=== PATIENT | female | born 1965 | race Caucasian/White ===

== ENCOUNTER 2016-09-28 09:22 | Emergency (ER) | payer MEDICAID ==
[~2016-09-28] VITALS: Ht 162.6 cm; Wt 61.2 kg
[2016-09-28] MEDS ORDERED: ASPI1TAB PO (09:26)
[2016-09-28] MEDS ORDERED: PROMETHAZINE HCL 25 MG/1 ML VIAL IM ONE (09:45)
[2016-09-28] MEDS ORDERED: HYDROMORPHONE 1 MG/1 ML DISP.SYRIN IM ONE (09:45)
[2016-09-28] MEDS ORDERED: HYDROMORPHONE 2 MG/1 ML DISP.SYRIN ONE (10:01)
[2016-09-28] MEDS ORDERED: PROMETHAZINE HCL 25 MG/1 ML VIAL ONE (10:02)
--- NOTE | 2016-09-28 10:09 | NUR ---
PT IS IN ROOM #2A. DR REYES EVALUATED THE PT.
--- NOTE | 2016-09-28 10:40 | NUR ---
PT WAS D/C TO HOME. D/C INSTRUCTIONS GIVEN TO THE PT.
[2016-09-28 10:42] VITALS: BP 129/72
== END 2016-09-28 10:44 | disposition home or self-care (01) ==
LOC: ER 09:22
DX: R51 Headache (principal); J02.9 Acute pharyngitis, unspecified; Z79.82 Long term (current) use of aspirin
CPT/HCPCS: 70450; A4663; J1170; J2550

== ENCOUNTER 2016-12-06 21:34 | Emergency (ER) | payer MEDICAID ==
[~2016-12-06] VITALS: Ht 162.6 cm; Wt 61.2 kg
[~2016-12-06 21:34] MED LIST: ASPI1TAB PO
--- NOTE | 2016-12-06 22:43 | NUR ---
Pt to room. Pt c/o constant cough and sorethroat. Resp even and unlabored. Lungs CTA. Pt seen by MD. Pt stable for discharge per MD. Pt given ACi. Pt verbalized understanding of dc instructions. Pt ambulated out of er with steady gait.
[2016-12-06 22:45] VITALS: BP 93/70
== END 2016-12-06 22:45 | disposition home or self-care (01) ==
LOC: ER 21:35
DX: J40 Bronchitis, not specified as acute or chronic (principal); J02.9 Acute pharyngitis, unspecified; Z79.82 Long term (current) use of aspirin
CPT/HCPCS: A4663

== ENCOUNTER 2016-12-24 18:43 | Emergency (ER) | payer MEDICAID ==
[~2016-12-24] VITALS: Ht 162.6 cm; Wt 61.2 kg
--- NOTE | 2016-12-24 19:04 | NUR ---
Dr. Dawson at bedside for eval.
[2016-12-24 19:50] LABS: BASOPHILS # (AUTO) 0.1 K/uL (0.0-8.0); BASOPHILS % (AUTO) 0.8 % (0.0-2.0); EOSINOPHILS # (AUTO) 0.9 K/uL (0.0-0.7); EOSINOPHILS % (AUTO) 12.3 % (0.0-7.0); HEMATOCRIT 39.2 % (37-47); HEMOGLOBIN 13.2 G/DL (12.0-16.0); LYMPHOCYTES # (AUTO) 2.8 K/UL (0.8-4.8); LYMPHOCYTES % (AUTO) 39.1 % (20.5-51.5); MEAN CORPUSCULAR HEMOGLOBIN 30.9 UUG (27.0-31.0); MEAN CORPUSCULAR HGB CONC 34 g/dL (32.0-37.0); MEAN CORPUSCULAR VOLUME 91.7 FL (81.0-99.0); MONOCYTES # (AUTO) 0.5 K/UL (0.1-1.30); MONOCYTES % (AUTO) 6.3 % (0.0-11.0); NEUTROPHILS % (AUTO) 41.5 % (38.5-71.5); PLATELET COUNT (AUTO) 306 K/UL (150-450); RED BLOOD CELL COUNT(AUTO) 4.27 MIL/UL (4.2-5.4); WHITE BLOOD COUNT (AUTO) 7.3 K/UL (4.0-11.2)
[2016-12-24 19:52] LABS: POTASSIUM 3.8 mmol/L (3.5-5.1)
[2016-12-24 20:04] LABS: BILIRUBIN,DIRECT 0.1 mg/dL (0.0-0.2); BILIRUBIN,TOTAL 0.3 mg/dL (0.2-1.0)
[2016-12-24] MEDS: methylPREDNISolone ACETATE 40 MG VIAL IM ONE (20:38)
[2016-12-24 20:39] VITALS: BP 123/65
[2016-12-24] MEDS ORDERED: methylPREDNISolone ACETATE 40 MG VIAL ONE (20:46)
== END 2016-12-24 20:39 | disposition home or self-care (01) ==
LOC: ER 18:43
DX: J45.909 Unspecified asthma, uncomplicated (principal); Z79.82 Long term (current) use of aspirin
CPT/HCPCS: 36415; 70030-TC; 71010; 83605; 85025; 87040; A4663; J1030

== ENCOUNTER 2017-04-17 15:04 | Emergency (ER) | payer MEDICAID ==
[~2017-04-17] VITALS: Ht 160 cm; Wt 61.2 kg
[2017-04-17] MEDS ORDERED: ASPI-58 PO (15:33)
--- NOTE | 2017-04-17 15:59 | NUR ---
Patient discharged to home in stable conditon. Written and verbal after care instructions given. Patient verbalizes understanding of instructions.pt walks in steady gait.
== END 2017-04-17 16:01 | disposition home or self-care (01) ==
LOC: ER 15:05
DX: M54.12 Radiculopathy, cervical region (principal); F17.200 Nicotine dependence, unspecified, uncomplicated; Z79.82 Long term (current) use of aspirin
CPT/HCPCS: 99282; A4663

== ENCOUNTER 2017-07-15 18:16 | Emergency (ER) | payer MEDICAID ==
[~2017-07-15] VITALS: Ht 162.6 cm; Wt 62.1 kg
[~2017-07-15 18:16] MED LIST changes: +ASPI-1165 PO; +ASPI-58 PO; -ASPI1TAB PO
--- NOTE | 2017-07-15 19:04 | NUR ---
Report taken from day shift RN. Assuming PT care at this time
--- NOTE | 2017-07-15 19:30 | NUR ---
Patient left without being seen by ER physician. ER MD notified. patient stable at time of leaving. No IV access present. All belongings with patient.
== END 2017-07-15 19:36 | disposition left against medical advice (07) ==
LOC: ER 18:17
DX: Z53.21 Procedure and treatment not carried out due to patient leaving prior to being seen by health care provider (principal)
CPT/HCPCS: A4663

== ENCOUNTER 2017-07-25 17:36 | Emergency (ER) | payer MEDICAID ==
[~2017-07-25] VITALS: Ht 165.1 cm; Wt 62.1 kg
[2017-07-25] MEDS ORDERED: IBUP-1096 (18:44)
--- NOTE | 2017-07-25 19:14 | NUR ---
ERMD at bedside for MSE
[2017-07-25] MEDS ORDERED: predniSONE 50 MG TABLET PO ONE (19:30)
[2017-07-25] MEDS ORDERED: CEPHALEXIN MONOHYDRATE 500 MG CAPSULE PO ONE (19:30)
--- NOTE | 2017-07-25 19:31 | NUR ---
Patient discharged to home in stable conditon. Written and verbal after care instructions given. Patient verbalizes understanding of instructions.
[2017-07-25] MEDS ORDERED: CEPHALEXIN MONOHYDRATE 500 MG CAPSULE ONE (19:43)
[2017-07-25] MEDS ORDERED: predniSONE 50 MG TABLET ONE (19:43)
== END 2017-07-25 19:32 | disposition home or self-care (01) ==
LOC: ER 17:36
DX: J45.909 Unspecified asthma, uncomplicated (principal); Z79.82 Long term (current) use of aspirin
CPT/HCPCS: A4663; J7512

== ENCOUNTER 2018-03-01 20:26 | Emergency (ER) | payer MEDICAID ==
[~2018-03-01] VITALS: Ht 165.1 cm; Wt 63.5 kg
[~2018-03-01 20:26] MED LIST changes: +IBUP-1096
--- NOTE | 2018-03-01 21:17 | NUR ---
Dr. Jaime at bedside for MSE.
--- NOTE | 2018-03-01 21:30 | NUR ---
Patient discharged to home in stable conditon. Written and verbal after care instructions given. Patient verbalizes understanding of instructions. Pt ambulated out of ER with steady gait, no acute signs of distress, VSS, all belongings taken.
[2018-03-01 21:38] VITALS: BP 139/79
== END 2018-03-01 21:39 | disposition home or self-care (01) ==
LOC: ER 20:31
DX: J20.8 Acute bronchitis due to other specified organisms (principal); B96.89 Other specified bacterial agents as the cause of diseases classified elsewhere; Z87.891 Personal history of nicotine dependence
CPT/HCPCS: 99283; A4663

== ENCOUNTER 2020-07-27 19:39 | Emergency (ER) | payer MEDICAID ==
[~2020-07-27] VITALS: Ht 162.6 cm; Wt 70.8 kg
--- NOTE | 2020-07-27 20:15 | NUR ---
Dr. Nye at bedside for MSE.
--- NOTE | 2020-07-27 20:24 | NUR ---
Xray at bedside.
[2020-07-27] MEDS ORDERED: diphenhydrAMINE 50 MG/1 ML VIAL IM ONE (21:15)
[2020-07-27] MEDS ORDERED: KETOROLAC TROMETHAMINE 60 MG INJ IM ONE ×2 (21:15→21:21)
[2020-07-27] MEDS ORDERED: METOCLOPRAMIDE HCL 10 MG/2 ML VIAL IM ONE (21:15)
[2020-07-27] MEDS ORDERED: diphenhydrAMINE 50 MG/1 ML VIAL ONE (21:20)
[2020-07-27] MEDS ORDERED: METOCLOPRAMIDE HCL 10 MG/2 ML VIAL ONE (21:21)
--- NOTE | 2020-07-27 21:42 | NUR ---
Patient discharged to home in stable condition. Written and verbal after care instructions given. Patient verbalizes understanding of instructions. Stressed follow up or return to ER for worsening s/s. Patient out of ER with steady gait, no acute signs of distress, VSS, all belongings taken, provided with a copy of lab results.
[2020-07-27 21:43] VITALS: BP 140/82
== END 2020-07-27 21:43 | disposition home or self-care (01) ==
LOC: ER 19:59
DX: J18.9 Pneumonia, unspecified organism (principal); R00.1 Bradycardia, unspecified; F17.200 Nicotine dependence, unspecified, uncomplicated; Z79.82 Long term (current) use of aspirin
CPT/HCPCS: 71045; 87426; 93005; 96372 ×2; 99285; J1200; J1885; J2765; A4663

== ENCOUNTER 2020-09-14 19:00 | Emergency (ER) | payer MEDICAID ==
[~2020-09-14] VITALS: Ht 162.6 cm; Wt 71.2 kg
--- NOTE | 2020-09-14 19:18 | NUR ---
Patient arrived at the ER with c/o sorethroat x5days and cough x3 weeks.
--- NOTE | 2020-09-14 19:19 | NUR ---
Dr. Jaime on bedside for MSE.
[2020-09-14] MEDS ORDERED: BENZONATATE 100 MG CAPSULE PO ONE (19:30)
[2020-09-14] MEDS ORDERED: BENZONATATE 100 MG CAPSULE ONE (19:30)
[2020-09-14] MEDS ORDERED: BENZ-13 PO (20:24)
--- NOTE | 2020-09-14 20:30 | NUR ---
Patient discharged to home in stable condition. Written and verbal after care instructions given. Patient verbalizes understanding of instructions. Stressed follow up or return to ER for worsening s/s. Patient ambulated fr the ER with steady gait. All belongings with patient.
[2020-09-14 20:31] VITALS: BP 136/90
== END 2020-09-14 20:31 | disposition home or self-care (01) ==
LOC: ER 19:01
DX: R05 Cough (principal); Z87.01 Personal history of pneumonia (recurrent); Z87.891 Personal history of nicotine dependence
CPT/HCPCS: 71045; A4663

== ENCOUNTER 2021-01-03 14:05 | Emergency (ER) | payer MEDICAID ==
[~2021-01-03] VITALS: Ht 162.6 cm; Wt 71.2 kg
[~2021-01-03 14:05] MED LIST changes: +BENZ-13 PO
[2021-01-03 14:54] LABS: HEMATOCRIT 40.5 % (31.2-41.9); MEAN CORPUSCULAR HEMOGLOBIN 30.9 uug (24.7-32.8); MEAN CORPUSCULAR VOLUME 91.6 fL (75.5-95.3); PLATELET COUNT (AUTO) 350 K/uL (179-408)
[2021-01-03 14:59] LABS: CREATININE 1.1 mg/dL (0.6-1.3); POTASSIUM 4.2 mmol/L (3.5-5.1)
[2021-01-03 15:00] LABS: MAGNESIUM 2.1 mg/dL (1.8-2.4)
--- NOTE | 2021-01-03 15:12 | NUR ---
Patient discharged to home in stable condition. Written and verbal after care instructions given. Patient verbalizes understanding of instructions. Stressed follow up or return to ER for worsening s/s.
== END 2021-01-03 15:14 | disposition home or self-care (01) ==
LOC: ER 14:06
DX: R25.3 Fasciculation (principal); M25.512 Pain in left shoulder; R00.1 Bradycardia, unspecified
CPT/HCPCS: 36415; 70030-TC; 83735; 85025; 93005; A4663

== ENCOUNTER 2021-04-03 15:21 | Emergency (ER) | payer MEDICAID ==
[~2021-04-03] VITALS: Ht 154.9 cm; Wt 72.6 kg
--- NOTE | 2021-04-03 15:55 | NUR ---
ERMD at bedside for hx and physical EKG taken, Xray at bedside Lab at bedside for blood draw NAD VSS able to follow commands, changed into hospital gown [id number], bed at lowest position, ambulatory with stable gait
[2021-04-03 16:05] LABS: HEMATOCRIT 40.6 % (31.2-41.9); MEAN CORPUSCULAR HEMOGLOBIN 31.6 uug (24.7-32.8); MEAN CORPUSCULAR VOLUME 93.1 fL (75.5-95.3); PLATELET COUNT (AUTO) 283 K/uL (179-408)
[2021-04-03 16:08] LABS: POTASSIUM 4.3 mmol/L (3.5-5.1)
[2021-04-03 16:35] VITALS: BP 135/70
== END 2021-04-03 16:36 | disposition home or self-care (01) ==
LOC: ER 15:22
DX: R07.89 Other chest pain (principal); R05.9 Cough, unspecified; R00.1 Bradycardia, unspecified; Z87.01 Personal history of pneumonia (recurrent); Z79.82 Long term (current) use of aspirin
CPT/HCPCS: 36415; 70030-TC; 71045; 85025; 93005; A4663

== ENCOUNTER 2021-07-17 19:51 | Emergency (ER) | payer MEDICAID ==
[~2021-07-17] VITALS: Ht 162.6 cm; Wt 72.1 kg
[2021-07-17] MEDS ORDERED: ASPIRIN 81 MG TAB.CHEW PO ONE (20:15)
--- NOTE | 2021-07-17 20:17 | NUR ---
pt in room 2a c/o c/p and sob. pt a/o at this time.
--- NOTE | 2021-07-17 20:28 | NUR ---
Dr. Raines at bedside for MSE.
[2021-07-17] MEDS ORDERED: ASPIRIN 81 MG TAB.CHEW ONE (20:29)
--- NOTE | 2021-07-17 20:47 | NUR ---
labs were drawn.
[2021-07-17 20:54] LABS: HEMATOCRIT 39.7 % (31.2-41.9); MEAN CORPUSCULAR HEMOGLOBIN 31.3 uug (24.7-32.8); MEAN CORPUSCULAR VOLUME 90.8 fL (75.5-95.3); PLATELET COUNT (AUTO) 312 K/uL (179-408)
[2021-07-17 21:03] LABS: POTASSIUM 3.9 mmol/L (3.5-5.1)
--- NOTE | 2021-07-17 21:04 | NUR ---
pt taken to cat scan.
--- NOTE | 2021-07-17 21:12 | NUR ---
pt returned from cat scan.
[2021-07-17] MEDS ORDERED: METOCLOPRAMIDE HCL 10 MG/2 ML VIAL IV ONE (21:15)
[2021-07-17] MEDS ORDERED: diphenhydrAMINE 50 MG/1 ML VIAL IV ONE (21:15)
[2021-07-17] MEDS ORDERED: IV NS 1000 ML 1,000 ML IV ONE (21:15)
[2021-07-17] MEDS ORDERED: KETOROLAC TROMETHAMINE 30 MG INJ IVP ONE (21:15)
[2021-07-17 21:18] LABS: BILIRUBIN,DIRECT 0.1 mg/dL (0.0-0.2); BILIRUBIN,TOTAL 0.2 mg/dL (0.2-1.0); TOTAL PROTEIN, SERUM 7.2 g/dL (6.4-8.2)
[2021-07-17 21:22] LABS: MAGNESIUM 2.2 mg/dL (1.8-2.4); THYROID STIMULATING HORMONE 1.414 mIU/mL (0.358-3.740)
[2021-07-17] MEDS ORDERED: KETOROLAC TROMETHAMINE 30 MG INJ ONE (21:49)
[2021-07-17] MEDS ORDERED: diphenhydrAMINE 50 MG/1 ML VIAL ONE (21:49)
[2021-07-17] MEDS ORDERED: METOCLOPRAMIDE HCL 10 MG/2 ML VIAL ONE (21:49)
[2021-07-17] MEDS ORDERED: DIPH25CA83 PO (23:01)
[2021-07-17] MEDS ORDERED: NAPR-1009 PO (23:01)
[2021-07-17] MEDS ORDERED: METO-295 PO (23:01)
[2021-07-17] MEDS ORDERED: HYDR-3980 PO (23:02)
--- NOTE | 2021-07-17 23:21 | NUR ---
Patient discharged to home in stable condition. Written and verbal after care instructions given. Patient verbalizes understanding of instructions. Stressed follow up or return to ER for worsening s/s. pt ambulated with steady gait. denies pain.
[2021-07-17 23:22] VITALS: BP 145/86
== END 2021-07-17 23:23 | disposition home or self-care (01) ==
LOC: ER 19:52
DX: G43.909 Migraine, unspecified, not intractable, without status migrainosus (principal); M94.0 Chondrocostal junction syndrome [Tietze]; F17.290 Nicotine dependence, other tobacco product, uncomplicated; Z88.1 Allergy status to other antibiotic agents; Z79.82 Long term (current) use of aspirin; Z79.899 Other long term (current) drug therapy
CPT/HCPCS: 36415; 70450; 71045; 80048; 80076; 83036; 83735; 84443; 84484; 85025; 93005; 96361; 96374; 96375; 99285; J1200; J1885; J2765; 70030-TC; A4663; J7030

== ENCOUNTER 2023-04-26 18:04 | Emergency (ER) | payer MEDICAID ==
[~2023-04-26] VITALS: Ht 162.6 cm; Wt 72.6 kg
[~2023-04-26 18:04] MED LIST changes: +DIPH25CA83 PO; +HYDR-3980 PO; +METO-295 PO; +NAPR-1009 PO
[2023-04-26] MEDS ORDERED: diphenhydrAMINE 50 MG/1 ML VIAL IVP ONE (19:00)
[2023-04-26] MEDS ORDERED: PROCHLORPERAZINE EDISYLATE 10 MG/2 ML VIAL IV ONE (19:00)
[2023-04-26] MEDS ORDERED: ACETAMINOPHEN ES 500 MG TABLET PO ONE (19:00)
[2023-04-26] MEDS ORDERED: IV NORMAL SALINE 1000 ML BAG IV ONE (19:00)
[2023-04-26 19:14] LABS: BASOPHILS # (AUTO) 0.1 K/UL (0.0-0.2); BASOPHILS % (AUTO) 1.1 % (0.0-2.0); EOSINOPHILS # (AUTO) 0.5 K/uL (0.0-0.7); EOSINOPHILS % (AUTO) 5.7 % (0.0-7.0); HEMATOCRIT 40.1 % (31.2-41.9); HEMOGLOBIN 13.3 g/dL (10.9-14.3); LYMPHOCYTES # (AUTO) 1.6 K/uL (0.8-4.8); LYMPHOCYTES % (AUTO) 19.7 % (20.5-51.5); MEAN CORPUSCULAR HEMOGLOBIN 30.7 uug (24.7-32.8); MEAN CORPUSCULAR HGB CONC 33 g/dL (32.3-35.6); MEAN CORPUSCULAR VOLUME 92.4 fL (75.5-95.3); MONOCYTES # (AUTO) 0.4 K/uL (0.1-1.30); MONOCYTES % (AUTO) 4.5 % (0.0-11.0); NEUTROPHILS # (AUTO) 5.5 K/uL (1.8-8.9); PLATELET COUNT (AUTO) 305 K/uL (179-408); RED BLOOD CELL COUNT(AUTO) 4.34 MIL/uL (3.63-4.92); RED CELL DISTRIBUTION WIDTH 13.2 % (12.3-17.7); WHITE BLOOD COUNT (AUTO) 7.9 K/uL (3.8-11.8)
[2023-04-26 19:16] LABS: DIFFERENTIAL COMMENT 1
[2023-04-26] MEDS ORDERED: ACETAMINOPHEN ES 500 MG TABLET ONE (19:18)
[2023-04-26] MEDS ORDERED: PROCHLORPERAZINE EDISYLATE 10 MG/2 ML VIAL ONE (19:19)
[2023-04-26] MEDS ORDERED: diphenhydrAMINE 50 MG/1 ML VIAL ONE (19:19)
[2023-04-26 19:20] LABS: CALCIUM 9.8 mg/dL (8.5-10.1); CARBON DIOXIDE 27 mmol/L (21-32); CHLORIDE 105 mmol/L (98-107); CREATININE 1.1 mg/dL (0.6-1.3); GLUCOSE 145 mg/dL (74-106); POTASSIUM 4.1 mmol/L (3.5-5.1); SODIUM SERUM 143 mmol/L (136-145); UREA NITROGEN, BLOOD 16 mg/dL (7-18)
[2023-04-26 20:59] VITALS: BP 120/75; TEMP 98.6; O2SAT 100
== END 2023-04-26 20:59 | disposition home or self-care (01) ==
LOC: ER 18:05
DX: R51.9 Headache, unspecified (principal); R11.2 Nausea with vomiting, unspecified; R07.89 Other chest pain; R06.02 Shortness of breath; F17.210 Nicotine dependence, cigarettes, uncomplicated; Z88.1 Allergy status to other antibiotic agents; Z79.82 Long term (current) use of aspirin; Z79.899 Other long term (current) drug therapy; Z20.822 Contact with and (suspected) exposure to COVID-19
CPT/HCPCS: 99285; 96374; 71045; 96361; 96375; 87426; 80048; 85025; 84484 ×2; 36415; 93005; J1200; J0780; J7040; A4606; A4663; A9150

== ENCOUNTER 2023-06-17 18:11 | Emergency (ER) | payer MEDICAID ==
[~2023-06-17] VITALS: Ht 162.6 cm; Wt 72.6 kg
[2023-06-17 19:47] LABS: *BILIRUBIN,URIN NEGATIVE (NEGATIVE); *CLARITY,URINE CLEAR (CLEAR); *COLOR,URINE YELLOW (YELLOW); *KETONES,URINE TRACE (NEGATIVE); *PROTEIN,URINE NEGATIVE (NEGATIVE); *UROBILINOGEN,URINE 0.2 E.U./dl (NORMAL); LEUKOCYTE ESTERASE ,URINE NEGATIVE (NEGATIVE); NITRITE, URINE NEGATIVE (NEGATIVE); UGLUCOSE NEGATIVE (NEGATIVE)
[2023-06-17 19:59] LABS: *BLOOD, URINE TRACE (NEGATIVE)
[2023-06-17] MEDS ORDERED: KETOROLAC TROMETHAMINE 30 MG INJ IM ONE (20:00)
[2023-06-17] MEDS ORDERED: ONDANSETRON ODT 4 MG TAB.RAPDIS SL ONE (20:00)
[2023-06-17 20:08] LABS: BACTERIA,URINE FEW /HPF (NONE SEEN); RBC,URINE 0-3 /HPF (0-3); SQUAMOUS EPITHELIAL CELL,UR FEW /HPF (NONE SEEN); WBC,URINE 0-3 /HPF (0-3)
[2023-06-17 20:11] LABS: BASOPHILS # (AUTO) 0.1 K/UL (0.0-0.2); BASOPHILS % (AUTO) 1.1 % (0.0-2.0); EOSINOPHILS # (AUTO) 0.3 K/uL (0.0-0.7); EOSINOPHILS % (AUTO) 4.7 % (0.0-7.0); HEMATOCRIT 38.3 % (31.2-41.9); HEMOGLOBIN 13.1 g/dL (10.9-14.3); LYMPHOCYTES # (AUTO) 1.8 K/uL (0.8-4.8); LYMPHOCYTES % (AUTO) 27.8 % (20.5-51.5); MEAN CORPUSCULAR HEMOGLOBIN 31.4 uug (24.7-32.8); MEAN CORPUSCULAR HGB CONC 34 g/dL (32.3-35.6); MEAN CORPUSCULAR VOLUME 91.8 fL (75.5-95.3); MONOCYTES # (AUTO) 0.4 K/uL (0.1-1.30); MONOCYTES % (AUTO) 5.7 % (0.0-11.0); NEUTROPHILS % (AUTO) 60.7 % (38.5-71.5); PLATELET COUNT (AUTO) 311 K/uL (179-408); RED BLOOD CELL COUNT(AUTO) 4.17 MIL/uL (3.63-4.92); RED CELL DISTRIBUTION WIDTH 12.7 % (12.3-17.7); WHITE BLOOD COUNT (AUTO) 6.6 K/uL (3.8-11.8)
[2023-06-17 20:22] LABS: DIFFERENTIAL COMMENT 1
[2023-06-17] MEDS ORDERED: KETOROLAC TROMETHAMINE 30 MG INJ ONE (20:32)
[2023-06-17] MEDS ORDERED: ONDANSETRON ODT 4 MG TAB.RAPDIS ONE (20:32)
[2023-06-17 20:39] LABS: ALBUMIN 3.9 g/dL (3.4-5.0); BILIRUBIN,DIRECT 0.1 mg/dL (0.0-0.2); BILIRUBIN,TOTAL 0.5 mg/dL (0.2-1.0); CALCIUM 9.7 mg/dL (8.5-10.1); CREATININE 0.9 mg/dL (0.6-1.3); POTASSIUM 4.4 mmol/L (3.5-5.1)
[2023-06-17] MEDS ORDERED: HYDR-4209 PO (21:16)
[2023-06-17] MEDS ORDERED: CYCL5TAB PO (21:16)
[2023-06-17 21:25] VITALS: BP 139/80; TEMP 98; O2SAT 100
== END 2023-06-17 21:25 | disposition home or self-care (01) ==
LOC: ER 18:33
DX: S39.012A Strain of muscle, fascia and tendon of lower back, initial encounter (principal); G43.909 Migraine, unspecified, not intractable, without status migrainosus; J40 Bronchitis, not specified as acute or chronic; F17.200 Nicotine dependence, unspecified, uncomplicated; Z79.82 Long term (current) use of aspirin; Z79.899 Other long term (current) drug therapy; Z88.1 Allergy status to other antibiotic agents; X58.XXXA Exposure to other specified factors, initial encounter; Y93.89 Activity, other specified; Y92.89 Other specified places as the place of occurrence of the external cause; Y99.8 Other external cause status
CPT/HCPCS: 99285; 74176; 80076; 80048; 81001; 83690; 85025; 36415; 96372; J1885; A4606; A4663; Q0162